=== PATIENT | female | born 1950 | race Two or more races ===

== ENCOUNTER 2018-11-05 16:36 | Emergency (ER) | payer OTHER ==
[~2018-11-05] VITALS: Ht 165.1 cm; Wt 73.0 kg
[2018-11-05 16:58] VITALS: BP 122/82
[2018-11-05] MEDS ORDERED: SODIUM CHLORIDE 0.9% 1,000 ML IVB ONE (17:01)
[2018-11-05 17:21] LABS: Basophils # (auto) 0.1 uL; Eosinophils # (auto) 0 uL; Mean Corpuscular Hgb Conc. 33.3 g/dL (32.0-36.0); Monocytes # (auto) 0.5 uL; Monocytes % (auto) 4.5 % (0.0-12.0)
[2018-11-05 17:23] LABS: Basophils % (auto) 0.8 % (0.0-2.0); Eosinophils % (auto) 0.4 % (0.0-7.0); Hematocrit 30.5 % (36.0-46.0); Hemoglobin 10.2 g/dL (12.2-16.2); Lymphocytes # (auto) 1.3 uL; Lymphocytes % (auto) 12.9 % (10.0-50.0); Mean Corpuscular Hemoglobin 26.4 pg (28.0-32.0); Mean Corpuscular Volume 79.3 fL (80.0-100.0); Neutrophils # (auto) 8.4 uL; Neutrophils % (auto) 81.4 % (37.0-80.0); Platelet Count (auto) 425 10^3/uL (140-450); Red Blood Cells 3.85 10^6/uL (4.0-5.20); Red Cell Distribution Width 14.6 % (11.8-14.3); White Blood Cell 10.3 10^3/uL (4.4-10.8)
[2018-11-05 17:41] LABS: Albumin 2.8 g/dL (3.4-5.0); Calcium 8.5 mg/dL (8.5-10.1); Potassium 4.3 mmol/L (3.5-5.1)
[2018-11-05 17:42] LABS: INR 0.99 (0.9-1.15); Partial Thromboplastin Time 25.7 sec (23.78-33.04); Prothrombin Time 10.6 sec (9.27-12.13)
[2018-11-05 17:45] LABS: BUN/Creatinine Ratio 27.4; Bilirubin, Total 0.3 mg/dL (0.2-1.0)
[2018-11-05 17:47] LABS: Magnesium 2.4 mg/dL (1.6-2.6)
== END 2018-11-05 21:20 | disposition home or self-care (01) ==
LOC: ER 16:36
DX: K92.1 Melena (principal); D50.0 Iron deficiency anemia secondary to blood loss (chronic); Z90.710 Acquired absence of both cervix and uterus; Z88.0 Allergy status to penicillin; Z88.1 Allergy status to other antibiotic agents
CPT/HCPCS: 36415; 71045; 74176; 80053; 82150; 83690; 83735; 85025; 85610; 85730; 94761